=== PATIENT | male | born 1940 | race Two or more races ===

== ENCOUNTER 2025-06-28 06:00 | Day surgery (SDC) | payer OTHER ==
[2025-06-22 12:24] VITALS: BP 126/84
[~2025-06-28] VITALS: Ht 167.6 cm; Wt 68.0 kg
[~2025-06-28 06:00] MED LIST: ADVIL200 M1 PO
[2025-06-28] MEDS ORDERED: HEMOSTATIC MATRIX 1 KIT KIT TOP ONE (08:15)
[2025-06-28] MEDS ORDERED: LIDOCAINE HCL 1%/EPINEPHRINE 20ML VIAL IJ ONE (08:15)
[2025-06-28] MEDS ORDERED: DIBUCAINE 30 GM TUBE RECTAL ONE (08:15)
[2025-06-28] MEDS ORDERED: METRONIDAZOLE/SODIUM CHLORIDE 500 MG/100 ML PIGGYBACK IV ONE (08:15)
[2025-06-28] MEDS ORDERED: CEFTRIAXONE SODIUM 2,000 MG VIAL IV ONE (08:15)
[2025-06-28] MEDS ORDERED: BUPIVACAINE HCL/PF 0.25% 30ML VIAL InF ONE (08:15)
[2025-06-28] MEDS ORDERED: CHLORHEXIDINE GLUCONATE 240 ML BOTTLE TOP ONE (08:15)
[2025-06-28] MEDS ORDERED: TAMSULOSIN HCL 0.4 MG CAP PO ONE (09:00)
[2025-06-28] MEDS ORDERED: OXYCODONE HCL5 MG PO (09:42)
== END 2025-06-28 14:40 | disposition home or self-care (01) ==
LOC: CIR.AMB 06:00
PROVIDERS: ATTEND Surgery
DX: K60.1 Chronic anal fissure (principal); K62.4 Stenosis of anus and rectum; K62.89 Other specified diseases of anus and rectum; K62.5 Hemorrhage of anus and rectum